=== PATIENT | male | born 1995 | race Caucasian/White ===

== ENCOUNTER 2019-03-28 20:47 | Emergency (ER) | payer OTHER ==
[~2019-03-28] VITALS: Ht 193 cm; Wt 93.0 kg
[~2019-03-28 20:47] MED LIST: ACET325; CODACE30 PO; Norco 5-325 Ta1 EACH PO
== END 2019-03-28 21:52 | disposition home or self-care (01) ==
LOC: ER 20:47
DX: S06.0X0A Concussion without loss of consciousness, initial encounter (principal); W22.8XXA Striking against or struck by other objects, initial encounter; F17.200 Nicotine dependence, unspecified, uncomplicated
CPT/HCPCS: 99283